=== PATIENT | female | born 1965 | race Caucasian/White ===

== ENCOUNTER → 2020-09-09 15:06 | Emergency (ER) | payer MEDICARE ==
[~2020-09-09 15:06] MED LIST: 8 HOUR650 MG PO; IBU600 MG PO
== END | disposition left against medical advice (07) ==
LOC: FER 15:06
DX: M54.9 Dorsalgia, unspecified (principal); M25.551 Pain in right hip; Z53.8 Procedure and treatment not carried out for other reasons